=== PATIENT | male | born 1945 | race Caucasian/White ===

== ENCOUNTER 2025-09-06 14:10 | Outpatient (REF) | payer MEDICARE, SELFPAY ==
--- OUTSIDE RECORDS SUMMARY | 2025-09-06 14:23 | XMS_ITS | Clinical Summary ---
Author Organization [facility] Address [address] [place] [address] Care Team Providers Care Air Quality Chemist Name Role Phone Hong Benoit MD Primary Care Provider [phone] Encounters DateTypeDepartmentCare NdofKuwktffwypd07/16/2025bstract [facility] [address] [facility] [address] [place] [id number] Hong Benoit MD from Last 3 Months Social History Tobacco UseTypesPacks/DayYears UsedDateSmoking Tobacco: Never AssessedSex and Gender InformationValueDate RecordedSex Assigned at BirthNot on fileLegal Sex Male12/13/2023 8:30 PM EDTGender IdentityNot on fileSexual OrientationNot on file Plan of Treatment Not on file Insurance Care Teams Team MemberRelationshipSpecialtyStart DateEnd Date Hong Benoit MD [address] [place] [address] [facility]12/10/23
--- OUTSIDE RECORDS SUMMARY | 2025-09-06 14:23 | XMS_ITS | Patient Health Record ---
Author Organization [facility] in [place] Address [address] [place] [address] Support Name Relationship Address Phone Nicolasa Kay Emergency Contact Unknown Unavailabl e Davon Kay Jr Guarantor Unknown Reason For Referral No Information Plan Of Treatment No Information Insurance Providers Payer Name Payer Address Payer Phone Subscriber Number Group Number Insured Name Patient Relationship to Insured Coverage Start Date Coverage End Date SELF PAY ON PATIENT DEMOGRAPHICS Davon Kay JrSelf - patient is the [id number]
[2025-09-06 14:33] LABS: Hematocrit 38.1 % (42.0-54.0); Hemoglobin 11.8 g/dL (14.0-18.0); Mean Corpuscular HGB Conc 31.0 g/dL (29.9-35.2); Mean Corpuscular Hemoglobin 28.4 pg (25.9-34.0); Mean Corpuscular Volume 91.8 fL (80.0-94.0); Platelet Count 234 10^3/uL (150-450); Red Blood Count 4.15 10^6/uL (4.70-6.10); White Blood Count 11.6 10^3/uL (4.0-11.0)
[2025-09-06 15:08] LABS: Band Neutrophils Absolute 0.8 10^3/uL (0.0-0.3); Basophils Abs Manual 0.11 10^3/uL (0.00-0.10); Basophils Percent Manual 1.0 % (0.2-2.0); Eosinophils Absolute Manual 0.00 10^3/uL (0.00-0.70); Eosinophils Percent Manual 0.0 % (0.9-7.0); Lymphocytes Absolute Manual 2.78 10^3/uL (1.20-3.80); Lymphocytes Percent Manual 24.0 % (20.5-60.0); Monocytes Absolute Manual 0.92 10^3/uL (0.30-0.80); Monocytes Percent Manual 8.0 % (1.7-12.0); Segmented Neut Absolute Manual 6.96 10^3/uL (1.4-6.5); Segmented Neutrophils % Manual 60.0 (43.0-75.0)
== END 2025-09-06 14:11 | disposition home or self-care (01) ==
LOC: LAB 14:10
PROVIDERS: PCP Family Medicine; Visit Provider Nurse Practitioner Family
DX: D64.9 Anemia, unspecified (principal); R11.10 Vomiting, unspecified
CPT/HCPCS: 36415; 85007; 85027